=== PATIENT | female | born 1980 | race Two or more races ===

== ENCOUNTER 2021-11-20 19:02 | Emergency (ER) | payer MEDICAID, OTHER ==
[~2021-11-20] VITALS: Ht 175.3 cm; Wt 125.0 kg
[2021-11-20 20:32] VITALS: BP 135/87
[2021-11-20 21:18] LABS: Urine Bacteria FEW /hpf (None Seen); Urine Blood Negative /uL (Negative); Urine Mucus FEW (None Seen); Urine Specific Gravity 1.033 (1.001-1.035); Urine WBC 4 /hpf (0 - 5)
== END 2021-11-20 22:54 | disposition left against medical advice (07) ==
LOC: ER 19:02
DX: R10.11 Right upper quadrant pain (principal); R22.43 Localized swelling, mass and lump, lower limb, bilateral; Z53.21 Procedure and treatment not carried out due to patient leaving prior to being seen by health care provider
CPT/HCPCS: 81001